=== PATIENT | male | born 1945 | race Caucasian/White ===

== ENCOUNTER 2017-06-25 08:22 | Day surgery (SDC) | payer OTHER ==
[~2017-06-25] VITALS: Ht 180.3 cm; Wt 88.0 kg
[~2017-06-25 08:22] MED LIST: ASPI325 PO; ASPI81CH PO; ATOR20 PO; ATOR40TA PO; Accupril20 MG PO; Amiodarone HCl200 MG PO; Amlodipine Besy10 MG PO; Aspir 8181 MG PO; CARV25 PO; CLOP75 PO; Daily Multiple1 EACH PO; ENTRESTO 49 MG1 EACH PO; FURO40 PO; HYDACE5 PO; HYDCHL25 PO; HYDR1TAB94 PO; Hair, Skin & N1 EACH PO; K-TAB ER20 MEQ PO; Lasix20 MG PO; METO100ER PO; METO25ER; METO50 PO; METO50ER PO; METTREX2.5 PO; NAPR500 PO; NITR.4SL SL; QUIN10 PO; VITAMINS; XARELTO20 MG PO
[2017-06-25] MEDS ORDERED: FURO20 PO (09:56)
[2018-04-30] MEDS ORDERED: CEPH500 PO (23:25)
== END 2017-06-25 22:48 | disposition home or self-care (01) ==
LOC: ORSCMMR 08:22
PROVIDERS: Surgery
PROC: 0YU60JZ Supplement Left Inguinal Region with Synthetic Substitute, Open Approach (ICD-10-PCS; principal; 2017-06-25 10:45)
PROC: 0WUF0JZ Supplement Abdominal Wall with Synthetic Substitute, Open Approach (ICD-10-PCS; principal; 2017-06-25 10:45)
DX: K42.0 Umbilical hernia with obstruction, without gangrene (principal); K40.90 Unilateral inguinal hernia, without obstruction or gangrene, not specified as recurrent; I10 Essential (primary) hypertension; I25.2 Old myocardial infarction; I25.10 Atherosclerotic heart disease of native coronary artery without angina pectoris; Z79.899 Other long term (current) drug therapy; Z79.82 Long term (current) use of aspirin
CPT/HCPCS: 93287; C1781; J0690; J1100; J2370; J2405; J2710; J3010; J7120

== ENCOUNTER 2017-07-18 09:18 | Emergency (ER) | payer OTHER ==
[~2017-07-18] VITALS: Ht 182.9 cm; Wt 86.2 kg
[~2017-07-18 09:18] MED LIST changes: +FURO20 PO
[2017-07-18 10:20] LABS: Hematocrit 42.5 % (37.0-53.0); Hemoglobin 13.5 g/dL (13.5-17.5); Mean Corpuscular HGB 29.9 pg (26.0-34.0); Mean Corpuscular HGB Conc 31.8 g/dL (31.5-36.5); Mean Corpuscular Volume 94 fL (80-100); Mean Platelet Volume 10.5 fL (9.1-12.4); Platelet Count 180 K/mm3 (150-400); RDW Coefficient Variation 15.4 % (11.7-14.2); RDW Standard Deviation 53.4 fL (35.1-46.3); Red Blood Cell Count 4.52 M/mm3 (4.30-5.90); White Blood Cell Count 5.04 K/mm3 (4.00-11.30)
[2017-07-18 10:32] LABS: Anion Gap 7 mmol/L (6-16); Blood Urea Nitrogen 19 mg/dL (8-24); Bun/Creatinine Ratio 13.6 (12.0-20.0); CO2, Blood 30 mmol/L (21-32); Calcium, Blood 8.4 mg/dL (8.5-10.1); Chloride, Blood 106 mmol/L (98-108); Glomerular Filtration Rate 53 (60-); Glucose, Blood 85 mg/dL (70-99); Sodium, Blood 143 mmol/L (136-145); Troponin I <0.015 ng/mL (0.000-0.040)
[2018-04-30] MEDS ORDERED: CEPH500 PO (23:25)
== END 2017-07-18 11:04 | disposition home or self-care (01) ==
LOC: ER 09:18
PROVIDERS: Emergency Medicine
DX: R07.89 Other chest pain (principal); E78.5 Hyperlipidemia, unspecified; I10 Essential (primary) hypertension; Z79.899 Other long term (current) drug therapy; Z79.82 Long term (current) use of aspirin
CPT/HCPCS: 36415; 71046; 80048; 84484; 85027; 93005; 93010; 99283

== ENCOUNTER 2018-05-31 10:15 | Inpatient (IN) | payer OTHER ==
[~2018-05-31] VITALS: Ht 180.3 cm; Wt 71.4 kg
[~2018-05-31 10:15] MED LIST changes: +CEPH500 PO
[2018-05-31] MEDS ORDERED: K-Dur10 MEQ PO (12:54)
[2018-05-31] MEDS ORDERED: Hydrocodone-Ap1 EA23 (12:55)
[2018-05-31] MEDS ORDERED: VENL37.5ER (12:55)
[2018-05-31] MEDS ORDERED: SYNTHROID112 MCG (12:56)
[2018-05-31 14:34] LABS: BASOPHILS ABSOLUTE AUTO 0.07 K/mm3 (0.00-0.23); BASOPHILS PERCENT AUTO 1 % (0-2); EOSINOPHILS ABSOLUTE AUTO 0.29 K/mm3 (0.00-0.68); EOSINOPHILS PERCENT AUTO 5 % (0-6); Hematocrit 42.9 % (37.0-53.0); Hemoglobin 13.4 g/dL (13.5-17.5); IMMATURE GRAN ABSOLUTE AUTO 0.01 K/mm3 (0.00-0.10); IMMATURE GRAN PERCENT AUTO 0 % (0-1); LYMPHOCYTES ABSOLUTE AUTO 1.59 K/mm3 (0.84-5.20); LYMPHOCYTES PERCENT AUTO 29 % (21-46); MONOCYTES ABSOLUTE AUTO 0.43 K/mm3 (0.16-1.47); MONOCYTES PERCENT AUTO 8 % (4-13); Mean Corpuscular HGB 30.5 pg (26.0-34.0); Mean Corpuscular HGB Conc 31.2 g/dL (31.5-36.5); Mean Corpuscular Volume 98 fL (80-100); Mean Platelet Volume 10.6 fL (9.1-12.4); NEUTROPHILS ABSOLUTE AUTO 3.04 K/mm3 (1.96-9.15); NEUTROPHILS PERCENT AUTO 56 % (41-73); Platelet Count 219 K/mm3 (150-400); RDW Coefficient Variation 13.8 % (11.7-14.2); Red Blood Cell Count 4.39 M/mm3 (4.30-5.90); White Blood Cell Count 5.43 K/mm3 (4.00-11.30)
[2018-05-31 14:47] LABS: International Normalized Ratio 1.14; Prothrombin Time Results 11.7 Sec (9.7-11.5)
[2018-05-31 14:57] LABS: Alanine Aminotransfer (ALT/SGP 12 U/L (12-78); Albumin, Blood 3.3 g/dL (3.4-5.0); Albumin/Globulin Ratio 0.8 (0.8-1.8); Alk Phos 108 U/L (50-136); Anion Gap 7 mmol/L (6-16); Aspartate Aminotrans (AST/SGOT 10 U/L (12-37); Bilirubin, Total 0.6 mg/dL (0.1-1.0); Blood Urea Nitrogen 19 mg/dL (8-24); Bun/Creatinine Ratio 17.6 (12.0-20.0); CO2, Blood 27 mmol/L (21-32); Calcium, Blood 8.6 mg/dL (8.5-10.1); Chloride, Blood 107 mmol/L (98-108); Creatinine, Blood 1.08 mg/dL (0.60-1.20); Globulin, Blood 3.9 g/dL (2.2-4.0); Glomerular Filtration Rate >60 (60-); Glucose, Blood 81 mg/dL (70-99); Potassium, Blood 3.9 mmol/L (3.5-5.5); Sodium, Blood 141 mmol/L (136-145); Total Protein, Blood 7.2 g/dL (6.4-8.2)
--- NOTE | 2018-05-31 15:55 | NUR ---
PT TO OR AT THIS TIME.
[2018-05-31] MEDS ORDERED: XARELTO20 MG PO (16:00)
[2018-05-31] MEDS ORDERED: LEVSOD50 PO (16:02)
--- NOTE | 2018-05-31 16:48 | NUR ---
DR BLANCA AND DR SARKAR CANCELLED SURGERY, ANCEF AND TXA WASTED PER SUSHANT IN PHARMACY. PATIENT RETURNED TO ROOM 216. REPORT TO DUKE GREEN.
--- NOTE | 2018-06-01 05:32 | NUR ---
PT HAD NO ACUTE CHANGES T/O NIGHT; VSS. PT DENIED PAIN T/O NIGHT. PT REPOSITIONING SELF IN BED. PT NPO POST MIDNIGHT FOR PLAN FOR OR TODAY. PT USING CALL LIGHT FOR ASSISTANCE, WILL CONT TO MONITOR UNTIL REP GIVEN TO ONCOMING RN.
--- NOTE | 2018-06-01 18:22 | NUR ---
SHIFT SUMMARY PT HAS DENIED PAIN T/O THE DAY. HE HAS REMAINED IN BED WITH FAMILY AT THE BEDSIDE. ECHO RESULTS OBTAINED FROM [facility]. SURGERY CANCELLED TODAY; PLAN FOR TOMORROW. DR. SPARROW RECOMMENDED WAITING UNTIL TOMORROW FOR SURGERY IN ORDER TO GIVE MORE DIURETICS PRIOR TO SURGERY. VSS. WILL MONITOR UNTIL REPORT TO ONCOMING RN.
--- NOTE | 2018-06-02 04:17 | NUR ---
PT VSS T/O NIGHT. HR SINUS 60-70'S W/PAC,PVC PER TELE MONITOR. PT REP LESS SOB W/EXERTION. PT REP PAIN GENE, DECLINIED NEED FOR PAIN MEDS. PT REPOSITIONING SELF IN BED, IS USING URINAL TO VOID. PT NPO POST MIDNIGHT FOR PLAN FOR SURGERY TODAY. PT USING CALL LIGHT FOR ASSISTANCE, WILL CONT TO MONITOR UNTIL REP GIVEN TO ONCOMING RN.
--- NOTE | 2018-06-02 08:12 | NUR ---
HS RN REPORTED THAT DR WALLER WANTED PT TO HAVE ALL CARDIAC MEDS INCLUDING LASIX THIS AM WITH SIP OF WATER. MEDS GIVEN WITH SIP OF WATER. PT REPORTS WILL TAKE SOME MEDS LATER TODAY.
--- NOTE | 2018-06-02 12:45 | NUR ---
PT TRANSPORTED TO [facility]. AGREES WITH PLANNED SURGERY. MEDS, ALLERGIES AND HX REVIEWED. LUNG SOUNDS CLEAR.
--- NOTE | 2018-06-02 13:29 | NUR ---
REPORT TO SURI MEIER RN.
--- NOTE | 2018-06-02 16:20 | NUR ---
PT BACK FROM HAVING PROCEDURE. PT ALERT BUT SLEEPY. ANSWERS QUESTIONS APPR. PT DENIES PAIN, NAUSEA, CP, SOB. FAMILY IN ROOM. DRESSING TO L HIP. PT HAS BILAT KNEE TEDS, PAS BLE.
--- NOTE | 2018-06-02 17:50 | NUR ---
DR WALLER HERE TO SEE PT.
--- NOTE | 2018-06-02 18:04 | NUR ---
SHIFT SUMMARY PT HAD PROCEDURE TODAY. PT RESTING QUIETLY WHEN NOT DISTURBED. PT TOLERATING SIPS OF WATER, NO NAUSEA. PT BEEN MED ORDERED. ALARM IN PLACE. CALL LIGHT IN REACH. TEDS/PAS/POLAR PAC IN PLACE. DR WALLER HERE THIS EVENING TO SEE PT. PT ON 3LO2NC, DENIES SOB.
--- NOTE | 2018-06-02 22:35 | NUR ---
MEDS: DR WALLER CONTACTED FOR PAIN MED ORDERS. PT BP AND HR ALSO DISCUSSED W/MD ESVIN ORDERED TO GIVR SCHEDULED BP MEDS ORDERED.
[2018-06-03 05:19] LABS: BASOPHILS ABSOLUTE AUTO 0.04 K/mm3 (0.00-0.23); BASOPHILS PERCENT AUTO 0 % (0-2); EOSINOPHILS ABSOLUTE AUTO 0.01 K/mm3 (0.00-0.68); EOSINOPHILS PERCENT AUTO 0 % (0-6); Hematocrit 38.8 % (37.0-53.0); Hemoglobin 12.6 g/dL (13.5-17.5); IMMATURE GRAN ABSOLUTE AUTO 0.02 K/mm3 (0.00-0.10); IMMATURE GRAN PERCENT AUTO 0 % (0-1); LYMPHOCYTES ABSOLUTE AUTO 0.81 K/mm3 (0.84-5.20); LYMPHOCYTES PERCENT AUTO 8 % (21-46); MONOCYTES ABSOLUTE AUTO 0.61 K/mm3 (0.16-1.47); MONOCYTES PERCENT AUTO 6 % (4-13); Mean Corpuscular HGB 30.3 pg (26.0-34.0); Mean Corpuscular HGB Conc 32.5 g/dL (31.5-36.5); Mean Corpuscular Volume 93 fL (80-100); Mean Platelet Volume 10.8 fL (9.1-12.4); NEUTROPHILS ABSOLUTE AUTO 8.13 K/mm3 (1.96-9.15); NEUTROPHILS PERCENT AUTO 85 % (41-73); Platelet Count 172 K/mm3 (150-400); RDW Coefficient Variation 13.5 % (11.7-14.2); RDW Standard Deviation 46.3 fL (35.1-46.3); Red Blood Cell Count 4.16 M/mm3 (4.30-5.90); White Blood Cell Count 9.62 K/mm3 (4.00-11.30)
[2018-06-03 05:54] LABS: Anion Gap 9 mmol/L (6-16); Blood Urea Nitrogen 23 mg/dL (8-24); Bun/Creatinine Ratio 21.3 (12.0-20.0); CO2, Blood 26 mmol/L (21-32); Calcium, Blood 8.1 mg/dL (8.5-10.1); Chloride, Blood 106 mmol/L (98-108); Creatinine, Blood 1.08 mg/dL (0.60-1.20); Glomerular Filtration Rate >60 (60-); Glucose, Blood 112 mg/dL (70-99); Potassium, Blood 3.7 mmol/L (3.5-5.5); Sodium, Blood 141 mmol/L (136-145)
--- NOTE | 2018-06-03 06:23 | NUR ---
POD 1 S/P L VALERIA HIP REPAIR. PT BP ELEVATED MID NIGHT R/T PAIN, PT DENIED CP/PRESSURE/SOB, BP NEAR PT BASELINE THIS AM; OTHER VSS. PT STRUGGLED WITH PAIN DURING NIGHT. NORCO GIVEN PER ORDERS, PT APPEARED TO BECOME SOMEWHAT DISORIENTED W/EPISODE OF NAUSEA AFTER SECOND NORCO GIVEN. PT REQ ONLY TYLENOL FOR PAIN FOR REMAINDER OF NIGHT. PT UP OOB W/FWW+1 ASSIST, GENE ACTIVITY WELL. DRESSING CDI, PT REPOSITIONING SELF IN BED, IS USING CALL LIGHT FOR ASSISTANCE, WILL CONT TO MONITOR UNTIL REP GIVEN TO ONCOMING RN.
--- NOTE | 2018-06-03 06:51 | NUR ---
DR WALLER HERE TO SEE PT. DISCUSSED PAIN MEDS/MGMT.
--- NOTE | 2018-06-03 12:56 | NUR ---
06/03/18 1256 Ebonie Hoyos CHART AUDITS, ADDED SPINAL TRAY.
--- NOTE | 2018-06-03 18:40 | NUR ---
SHIFT SUMMARY PT EATING AND DRINKING. PT ORIENTED T/O DAY. PT WORKED WITH THERAPY. PT BEEN UP TO CHAIR. RESTED THIS AFTERNOON. PT BEEN REPOSITIONING SELF. PT HAS TOWEL IN BETWEEN LEGS TO HELP REMEMBER HIP PRECAUTIONS. PT HAS TEDS, PAS AND ALARM IN PLACE. PT BEEN ASSISTED WITH ADL'S PRN. PT AMBULATED SHORT DISTANCE EARLIER WITH VETERINARY ASSISTANT IN HALLWAY WELL. FAMILY IN/OUT OF ROOM. DR WALLER BY TO SEE PT EARLY THIS AM AND THIS EVENING. DISCUSSED WITH DR WALLER THERAPY'S PLAN OF CARE FOR PT TO GO TO SNF AT THIS POINT. PT MED WITH TRAMADOL FOR PAIN.
--- NOTE | 2018-06-04 05:29 | NUR ---
SHIFT SUMMARY: PT HAS DONE WELL THIS SHIFT. POD #2 L HIP FX. PAIN IS WELL CONTROLLED WITH ULTRAM Q6 PER EMAR. CRYOTHERAPY AND AQUACEL DRESSING IN PLACE. SKUDS AND YANET HOSE IN PLACE. PT APPEARS TO BE RESTING MOST OF SHIFT. ENCOURAGED TO PERFORM LEG EXERCISES AND DRINK PLENTY OF FLUIDS. PT REPORTS NOT HAVING A BIG APPETITE. DENIES N/V. DRINKING SML AMTS OF WATER.
--- NOTE | 2018-06-04 18:02 | NUR ---
shift summary: vss. pt had one run 4-6 beat run of v-tach at approx 1415, returned to sinus rhythm. (v-tach coincided with pt being awoken from a nap). pt reports no pain this shift, requested no PRN pain medication, refused analgesia on assessment. Pt worked with PT/OT this shift, walked in hallway with fww/gait belt with PT. pt up in chair for lunch and dinner. family visited x [address] baldwin and dr marrero rounded on pt. pt tolerated PO intake with no n/v, urinated >500 ml this shift. operative limb with good pulses/cap refil. aquacel dressing remaiend c/d/i
--- NOTE | 2018-06-05 07:33 | NUR ---
LYING IN SEMI FOWLERS WITH EYES CLOSED. TOLERATING PAIN AND AMBULATION WELL. DENIES FURTHER NEEDS AT THIS TIME. SAFETY MEASURES IN PLACE. WILL COTNINUE TO MONITOR.
[2018-06-05] MEDS ORDERED: ACET325 PO (12:27)
[2018-06-05] MEDS ORDERED: Bisac-Evac10 MG PR (12:28)
[2018-06-05] MEDS ORDERED: DOCU100 PO (12:28)
[2018-06-05] MEDS ORDERED: TRAM50 PO (12:29)
--- NOTE | 2018-06-05 14:25 | NUR ---
R HAND SUTURES REMOVED ORDERED, PT TOLERATED WELL, DENIES ANY PAIN, TRANSFER TO SNF THIS AFTERNOON.
--- NOTE | 2018-06-05 14:37 | NUR ---
REPORT CALLED TO NORMA COKER AT [facility].
--- NOTE | 2018-06-05 15:27 | NUR ---
[facility]
== END 2018-06-05 15:27 | DRG 470 ==
LOC: ER 10:15 → SURS 14:05
PROVIDERS: Orthopaedic Surgery; Physician Assistant; ADMIT Internal Medicine
PROC: 0SRS0JA Replacement of Left Hip Joint, Femoral Surface with Synthetic Substitute, Uncemented, Open Approach (ICD-10-PCS; principal; 2018-06-02 13:00)
DX: S72.002A Fracture of unspecified part of neck of left femur, initial encounter for closed fracture (principal); I50.22 Chronic systolic (congestive) heart failure; I25.5 Ischemic cardiomyopathy; E78.5 Hyperlipidemia, unspecified; I11.0 Hypertensive heart disease with heart failure; E03.9 Hypothyroidism, unspecified; M06.9 Rheumatoid arthritis, unspecified; I25.10 Atherosclerotic heart disease of native coronary artery without angina pectoris; Z95.5 Presence of coronary angioplasty implant and graft; Z95.1 Presence of aortocoronary bypass graft; Z87.891 Personal history of nicotine dependence; Z79.82 Long term (current) use of aspirin; Z79.01 Long term (current) use of anticoagulants; Z79.899 Other long term (current) drug therapy
CPT/HCPCS: 36415; 71045; 72170; 73502; 80048; 80053; 83880; 85025; 85610; 85730; 86850; 86900; 86901; 88305; 88311; 93005; 93010; 97110; 97116; 97162; 97166; 97530; 97535; 99284-25; C1776; J0171; J0690; J0735; J1885; J1940; J2250; J2795; J3010; J7120

== ENCOUNTER 2018-06-07 14:36 | Inpatient (IN) | payer OTHER ==
[~2018-06-07] VITALS: Ht 180.3 cm; Wt 85.5 kg
[~2018-06-07 14:36] MED LIST changes: +ACET325 PO; +Bisac-Evac10 MG PR; +DOCU100 PO; +Hydrocodone-Ap1 EA23; +K-Dur10 MEQ PO; +LEVSOD50 PO; +SYNTHROID112 MCG; +TRAM50 PO; +VENL37.5ER
[2018-06-07] MEDS ORDERED: Venlafaxine H37.5 MG PO (14:53)
[2018-06-07 15:12] LABS: BASOPHILS ABSOLUTE AUTO 0.05 K/mm3 (0.00-0.23); BASOPHILS PERCENT AUTO 0 % (0-2); EOSINOPHILS ABSOLUTE AUTO 0.06 K/mm3 (0.00-0.68); EOSINOPHILS PERCENT AUTO 1 % (0-6); Hematocrit 39.2 % (37.0-53.0); Hemoglobin 12.4 g/dL (13.5-17.5); IMMATURE GRAN ABSOLUTE AUTO 0.04 K/mm3 (0.00-0.10); IMMATURE GRAN PERCENT AUTO 0 % (0-1); LYMPHOCYTES ABSOLUTE AUTO 1.29 K/mm3 (0.84-5.20); LYMPHOCYTES PERCENT AUTO 10 % (21-46); MONOCYTES ABSOLUTE AUTO 1.07 K/mm3 (0.16-1.47); MONOCYTES PERCENT AUTO 9 % (4-13); Mean Corpuscular HGB 30.1 pg (26.0-34.0); Mean Corpuscular HGB Conc 31.6 g/dL (31.5-36.5); Mean Corpuscular Volume 95 fL (80-100); Mean Platelet Volume 11.2 fL (9.1-12.4); NEUTROPHILS ABSOLUTE AUTO 9.96 K/mm3 (1.96-9.15); NEUTROPHILS PERCENT AUTO 80 % (41-73); Platelet Count 239 K/mm3 (150-400); RDW Coefficient Variation 14.1 % (11.7-14.2); RDW Standard Deviation 49.6 fL (35.1-46.3); Red Blood Cell Count 4.12 M/mm3 (4.30-5.90); White Blood Cell Count 12.47 K/mm3 (4.00-11.30)
[2018-06-07 15:31] LABS: Alanine Aminotransfer (ALT/SGP 28 U/L (12-78); Albumin, Blood 2.7 g/dL (3.4-5.0); Albumin/Globulin Ratio 0.6 (0.8-1.8); Alk Phos 102 U/L (50-136); Anion Gap 9 mmol/L (6-16); Aspartate Aminotrans (AST/SGOT 170 U/L (12-37); Bilirubin, Total 1.2 mg/dL (0.1-1.0); Blood Urea Nitrogen 29 mg/dL (8-24); CO2, Blood 28 mmol/L (21-32); Calcium, Blood 8.4 mg/dL (8.5-10.1); Chloride, Blood 102 mmol/L (98-108); Creatinine, Blood 1.16 mg/dL (0.60-1.20); Globulin, Blood 4.4 g/dL (2.2-4.0); Glomerular Filtration Rate >60 (60-); Glucose, Blood 108 mg/dL (70-99); Potassium, Blood 3.8 mmol/L (3.5-5.5); Sodium, Blood 139 mmol/L (136-145); Total Protein, Blood 7.1 g/dL (6.4-8.2)
[2018-06-07 18:51] LABS: BASOPHILS ABSOLUTE AUTO 0.04 K/mm3 (0.00-0.23); BASOPHILS PERCENT AUTO 0 % (0-2); EOSINOPHILS ABSOLUTE AUTO 0.05 K/mm3 (0.00-0.68); EOSINOPHILS PERCENT AUTO 1 % (0-6); Hematocrit 34.7 % (37.0-53.0); IMMATURE GRAN ABSOLUTE AUTO 0.03 K/mm3 (0.00-0.10); IMMATURE GRAN PERCENT AUTO 0 % (0-1); LYMPHOCYTES ABSOLUTE AUTO 1.14 K/mm3 (0.84-5.20); LYMPHOCYTES PERCENT AUTO 11 % (21-46); MONOCYTES ABSOLUTE AUTO 1.03 K/mm3 (0.16-1.47); MONOCYTES PERCENT AUTO 10 % (4-13); Mean Corpuscular HGB 30.4 pg (26.0-34.0); Mean Corpuscular HGB Conc 31.7 g/dL (31.5-36.5); Mean Corpuscular Volume 96 fL (80-100); Mean Platelet Volume 11.4 fL (9.1-12.4); NEUTROPHILS ABSOLUTE AUTO 8.48 K/mm3 (1.96-9.15); NEUTROPHILS PERCENT AUTO 79 % (41-73); Platelet Count 209 K/mm3 (150-400); RDW Coefficient Variation 14.1 % (11.7-14.2); RDW Standard Deviation 49.5 fL (35.1-46.3); Red Blood Cell Count 3.62 M/mm3 (4.30-5.90); White Blood Cell Count 10.77 K/mm3 (4.00-11.30)
[2018-06-07 19:29] LABS: Anion Gap 7 mmol/L (6-16); Blood Urea Nitrogen 28 mg/dL (8-24); Bun/Creatinine Ratio 24.1 (12.0-20.0); CO2, Blood 27 mmol/L (21-32); Calcium, Blood 7.7 mg/dL (8.5-10.1); Chloride, Blood 102 mmol/L (98-108); Creatinine, Blood 1.16 mg/dL (0.60-1.20); Glomerular Filtration Rate >60 (60-); Glucose, Blood 106 mg/dL (70-99); Potassium, Blood 3.9 mmol/L (3.5-5.5); Sodium, Blood 136 mmol/L (136-145)
--- NOTE | 2018-06-08 05:47 | NUR ---
SHIFT SUMMARY: PATIENT HAS INTERMITTENT CONFUSION, WORSE AT APPROX 0550 WHEN PATIENT WAS NOT EASILY REORIENTED AND TOOK ALL OF HIS LINES AND CLOTHING OFF. BED IS LOW AND LOCKED WITH EXIT ALARM ON, ALL VSS, CALL LIGHT WITHIN REACH. PATIENTS RIGHT GROIN SITE REMAINS UNCHANGED WITH NO SIGN OF BLEEDING OR HEMATOMA, NO LOSS OF SENSATION, GOOD COLOR AND NO C/O PAIN. TROPONINS CONTINUE TO DROP. WEDGE IN USE ADDUCTION PILLOW AT THIS TIME.
--- NOTE | 2018-06-08 12:49 | NUR ---
LEFT HIP DRESSING REMOVED OLD DRESSING FROM [facility]. LEFT HIP INCISION WITH EDGES WELL APPROXIMATED. NO SUTURES OR ARTHUR VISIBLE. SMALL AMOUNT OF BRUISING NOTED. PT DENIED PAIN OR DISCOMFORT.RECOVERED WITH A CLEAN, DRY DRESSING. CONTINUE POT.
--- NOTE | 2018-06-08 18:00 | NUR ---
EVENING NOTE PT RESTING QUIETLY. VERY DEFINATE SLEEP APNEA. PT HAS HAD SEVERAL SLEEP STUDIES AT THE SLEEP LAB. HE HAS PREVIOUSLY REFUSED CPAP. VSS. SR. NO CHEST PAIN. RIGHT GROINS ITE CD&I. NO HEMATOMA OR SWELLING NOTED. LEFT HIP DRESSING FROM [facility] REMOVED. INCISION CD&I. DRY DRESSING APPLIED. PT REFUSED TYLENOL THIS EVENING. WEIGHT BEARING AT TOLERATED LEFT LE. LEG ROLL PLACED BETWEEN HIS LEGS. HE USUALLY MOVES IT. NO ATTEMPT TO CROSS HIS ANKLES NOTED. PT DID CLIMB OOB X1 WITHOUT CALLING FOR HELP. HE WAS INCONTINENT OF STOOL ONTO THE FLOOR. PT CLEANED UP. POOR APPETITE. DAUGHTER HERE EARLIER. CONTINUE POT.
--- NOTE | 2018-06-08 21:00 | NUR ---
PCU NIGHTSHIFT ASSUMED CARE OF PT APPROX. 1900. PT A&OX4. ASSESSMENT COMPLETED. VITAL SIGNS STABLE, ALTHOUGH BLOOD PRESSURE SLIGHTLY LOW AT 99/53. DISCUSSED WITH STAMP PRESSER AND LOOKED AT HIS BLOOD PRESSURE TRENDS AND THIS IS HOW IT HAS BEEN TRENDING. BRUISING ON LEFT HIP, BANDAGE IN PLACE ON LEFT HIP FROM RECENT HIP SURGERY. TEGADERM IN PLACE ON RT GROIN SITE FROM ANGIOGRAM YESTERDAY 06-07-18. NO S/SX OF BLEEDING, SWELLING OR HEMATOMA ON LEFT HIP OR RIGHT GROIN. A SCAB PRESENT ON RT HAND FROM RECENT INJURY AND SURGERY. CLEAN, DRY AND INTACT. PT CURRENLTY LAYING IN BED AT THIS TIME. BED IN LOW POSITION, BED ALARM ON, CALL LIGHT IN REACH AND PT DENIES ANY NEEDS AT THIS TIME.
[2018-06-09 04:04] LABS: BASOPHILS ABSOLUTE AUTO 0.06 K/mm3 (0.00-0.23); BASOPHILS PERCENT AUTO 1 % (0-2); EOSINOPHILS ABSOLUTE AUTO 0.23 K/mm3 (0.00-0.68); EOSINOPHILS PERCENT AUTO 2 % (0-6); Hematocrit 34.4 % (37.0-53.0); Hemoglobin 10.8 g/dL (13.5-17.5); IMMATURE GRAN ABSOLUTE AUTO 0.02 K/mm3 (0.00-0.10); IMMATURE GRAN PERCENT AUTO 0 % (0-1); LYMPHOCYTES ABSOLUTE AUTO 1.07 K/mm3 (0.84-5.20); LYMPHOCYTES PERCENT AUTO 11 % (21-46); MONOCYTES ABSOLUTE AUTO 0.77 K/mm3 (0.16-1.47); MONOCYTES PERCENT AUTO 8 % (4-13); Mean Corpuscular HGB 29.7 pg (26.0-34.0); Mean Corpuscular HGB Conc 31.4 g/dL (31.5-36.5); Mean Corpuscular Volume 95 fL (80-100); Mean Platelet Volume 11.3 fL (9.1-12.4); NEUTROPHILS ABSOLUTE AUTO 7.27 K/mm3 (1.96-9.15); NEUTROPHILS PERCENT AUTO 77 % (41-73); Platelet Count 267 K/mm3 (150-400); RDW Coefficient Variation 14.2 % (11.7-14.2); RDW Standard Deviation 49.1 fL (35.1-46.3); Red Blood Cell Count 3.64 M/mm3 (4.30-5.90); White Blood Cell Count 9.42 K/mm3 (4.00-11.30)
[2018-06-09 04:20] LABS: Bun/Creatinine Ratio 26.9 (12.0-20.0); Calcium, Blood 8.1 mg/dL (8.5-10.1); Creatinine, Blood 1.3 mg/dL (0.60-1.20); Potassium, Blood 3.5 mmol/L (3.5-5.5)
--- NOTE | 2018-06-09 05:45 | NUR ---
SHIFT SUMMARY PT PLEASANT AND COOPERATIVE. PT REMAINS A&O X4 AT THIS TIME, ALTHOUGH HAD INTERMITENT CONFUSION T/O SHIFT. CONFUSION WAS TYPICALLY DURING THE TIME PERIOD RIGHT AFTER PATIENT WOKE UP, AFTER A FEW MINUTES AND CONVERSATION CONFUSION DECREASED. ASSESSMENT FINDINGS REMAIN UNCHANGED. VITAL SIGNS REMAIN STABLE. BANAGE ON LEFT HIP INCISION REMAINS IN PLACE, TEGADERM REMAINS IN PLACE ON RT GROIN SITE INCISION. BOTH REMAIN CLEAN, DRY, AND INTACT WITH NO S/SX OF BLEEDING, SWELLING OR HEMATOMA. PT STOOD UP AT BEDSIDE ONCE DURING THE SHIFT TO USE URINAL. BED IN LOW POSITION, BED ALARM ON, CALL LIGHT ON, AND PT DENIES ANY NEEDS AT THIS TIME. WILL CONTINUE TO MONITOR UNTIL HANDOFF TO DAYSHIFT RN.
--- NOTE | 2018-06-09 12:23 | NUR ---
AMBULATION PHYSICAL THERAPY WAS HELPING PT. THEY HAD STARTED TO WALK FROM THE BED OUT TO THE PAZ. PT WAS WALKING ALONG AND STOPPED. HE JUST DTOOD THERE. PT NOTED THAT HIS PULSE WAS BOUNDING AND SHE COULD FEEL HIS PULSE WITHT HE GAIT BELT NEXT TO HUIS ABD. NO NEAR SYNCOPY BUT HE COULDN'T TALK. BROUGHT THE CHAIR TO HIM AND HELPED HIM SIT IN THE CHAIR. DAUGHTER WAS A T BEDSIDE. SHE STATED THAT THIS HAPPENS AT HOME TOO. CHECKED HIS BP LOW 90'S AFTER SITTING DOWN. IT TOOK A COUPLE MINUTES FOR PT TO BE ABLE TO TALK. TELEMETRY SHOWED AFIB IN THE 70'S. NO ARRYTHMIA NOTED. CONTINUE POT.
--- NOTE | 2018-06-09 18:12 | NUR ---
transfer to rm 220. PT ROOM ASSIGNMENT RECEIVED. NOTIFIED PT DAUGHTER AND PT. BOTH AGREEABLE TO MOVE. REPORT GIVEN TO WILLIAM GREEN. PT TRANSFERED IN THE RECLINER WITH HIS DAUGHTER. VALUABLE, CELL PHONE AND HEARING WENT WITH HIM. CONTINUE POT.
--- NOTE | 2018-06-10 01:47 | NUR ---
NOTIFIED DR. WALLER ABOUT PT'S RUNS OF VTACH. PT DENIED SOB OR CP, HE IS SATTING 92% ON 1L VIA weeSPIN. VSS. PT WAS ASLEEP DURING THE INITIAL RUNS. HE IS COMFORTABLE IN BED. DR. WALLER DOES NOT WISH TO CHANGE ORDERS AT THIS TIME, HE WILL ROUND ON THE PT TOMORROW. WILL CONTINUE TO MONITOR.
--- NOTE | 2018-06-10 05:44 | NUR ---
SHIFT SUMMARY PT TRANSFERRED STABLE FROM PCU YESTERDAY AFTERNOON FOLLOWING NSTEMI AND CARDIAC CATH'ING. HE IS ON TELE, MOSTLY A-FIB, THOUGH HE HAD A MULTIPLE BEAT RUN OF VTACH LAST NIGHT: 7 BEATS, 4 BEATS, 3 BEATS, 6 BEATS; ASYMPTOMATIC T/O. HE DENIED ANY CHEST PAIN OR SOB ACCOMPANYING. SLEEP STUDY DONE LAST NIGHT, PT SATS DROP TO HIGH 70S OFF O2 WHEN DEEPLY ASLEEP, PLACED ON NC FOR THE REMAINDER OF THE STUDY. HE WAS EDUCATED THIS MORNING AND HAS AGREED TO TRY WEARING A CPAP ONCE ORDERED. PT DENIES PAIN, TRAMADOL HIGHLY EFFECTIVE TO MANAGE. DR. WALLER NOTIFIED OF V-TACH EVENT, NO ORDERS AT THIS TIME, HE WILL ROUND THIS MORNING. GROIN CATH SITE INTACT, NO CHANGES. PT IS A&O, ABLE TO MAKE NEEDS KNOWN. WILL CTM UNTIL PASS TO NEXT SHIFT.
--- NOTE | 2018-06-10 06:53 | NUR ---
Pt gave me permission to take care of him today from 06:30-1200
--- NOTE | 2018-06-10 07:12 | NUR ---
PATIENT GAVE PERMISSION FOR JACQUARD FIXER TO PROVIDE CARE ON 06/09/18.
--- NOTE | 2018-06-10 07:29 | NUR ---
[facility] CALL[facility] NOTIFIED TO PUSH ANGIOGRAM FILMS TO DR. MONTERROSO AT [place].
--- NOTE | 2018-06-10 19:44 | NUR ---
SUMMARY UP TO CHAIR MOST OF THE DAY, TOLERATED AMBULATING WITH 1 PERSON ASSIST WELL IN THE HALLS, C/O BACK PAIN THIS AFTERNOON, 1 TRAMADOL GIVEN, DR. WALLER IN THE SEE PT THIS AFTERNOON, NO ACUTE CHANGES THIS SHIFT.
--- NOTE | 2018-06-11 05:59 | NUR ---
SPOKE WITH DR. WALLER AFTER HE SAW PT WHILE NURSING WAS IN ANOTHER ROOM COMPLETING PT CARE. AFTER ASKING HOW THE PT DID [facility]ROUGH[facility] HE STATED THAT HE WOULD D/C PT TO REHAB SOON A PLACE WAS LOCATED BY ASSISTANT PROFESSOR OF BIOLOGY. STATED THAT THIS COULD BE COMPLETED FROM HIS OFFICE COMPUTER WHEN ROOM WAS FOUND AT ANY TIME TODAY AND INSTRUCTED FOR DAY SHIFT TO CALL HIS OFFICE AT THAT TIME. 0600 MEDS GIVEN, TOLERATED WELL. DENIES FURTHER NEEDS AT THIS TIME. SAFETY MEASURES IN PLACE. WILL GIVE HAND OFF TO ONCOMING SHIFT USING SBAR.
--- NOTE | 2018-06-11 06:30 | NUR ---
LYING IN LOW FOWLERS WITH EYES CLOSED. PAIN IS MANAGED WITH CURRENT PAIN REGIEMEN. REPOSITIONES SELF, TOLERATING WELL. NO FURTHER CHANGES SINCE START OF SHIFT. SAFETY MEASURES IN PLACE. WILL GIVE HAND OFF TO ONCOMING SHIFT USING SBAR.
--- NOTE | 2018-06-11 10:45 | NUR ---
Isidoro JOHNSON MD PASS DELAYED DUE TO PT WORKING WITH P/T.
--- NOTE | 2018-06-11 11:45 | NUR ---
patient gave me permission to provide care and assess on 06/10/2018.
--- NOTE | 2018-06-11 12:22 | NUR ---
DISCHARGE PT HAS DONE WELL BUT FATIGUES EASILY. REPORT CALLED TO [facility]. PT TRANSPORTED VIA W/C
== END 2018-06-11 12:15 | DRG 249 ==
LOC: ER 14:36 → PCU 16:52 → SURS 16:52 → PCU 18:27 → SURS 06-09 18:11
PROVIDERS: Family Medicine; Physician Assistant; ADMIT Internal Medicine Interventional Cardiology
PROC: 02703DZ Dilation of Coronary Artery, One Artery with Intraluminal Device, Percutaneous Approach (ICD-10-PCS; principal; 2018-06-07)
PROC: B2161ZZ Fluoroscopy of Right and Left Heart using Low Osmolar Contrast (ICD-10-PCS; 2018-06-07)
DX: I21.4 Non-ST elevation (NSTEMI) myocardial infarction (principal); K51.90 Ulcerative colitis, unspecified, without complications; I47.2 Ventricular tachycardia; I25.810 Atherosclerosis of coronary artery bypass graft(s) without angina pectoris; I50.22 Chronic systolic (congestive) heart failure; M06.9 Rheumatoid arthritis, unspecified; Z95.1 Presence of aortocoronary bypass graft; I25.5 Ischemic cardiomyopathy; Z87.891 Personal history of nicotine dependence; E78.5 Hyperlipidemia, unspecified; L40.9 Psoriasis, unspecified; E78.00 Pure hypercholesterolemia, unspecified; Z86.73 Personal history of transient ischemic attack (TIA), and cerebral infarction without residual deficits; E03.9 Hypothyroidism, unspecified; G47.33 Obstructive sleep apnea (adult) (pediatric); R09.02 Hypoxemia; G47.00 Insomnia, unspecified; G47.31 Primary central sleep apnea; Z79.82 Long term (current) use of aspirin; I11.0 Hypertensive heart disease with heart failure; S72.002D Fracture of unspecified part of neck of left femur, subsequent encounter for closed fracture with routine healing
CPT/HCPCS: 36415; 71046; 71260; 80048; 80053; 83880; 84484; 85025; 92937; 93005; 93010; 93306; 93455; 94762; 97110; 97116; 97161; 97166; 97530; 97535; 99152; 99153; 99285-25; C1760; C1769; C1876; C1887; J1644; J2250; J3010; J7030; Q9967